=== PATIENT | female | born 2000 | race American Indian/Alaskan Native ===

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

== ENCOUNTER 2021-01-10 22:38 | Emergency (ER) | payer MEDICAID ==
[2021-01-10 22:58] VITALS: BP 123/68
[2021-01-11 00:05] LABS: HCG Qualitative,Urine Negative (Negative)
[2021-01-11 00:22] LABS: Basophils % (Auto) 0.4 % (0.0-1.8); Eosinophils # (Auto) 0.1 K/mm3 (0.0-0.4); Eosinophils % (Auto) 0.7 % (0.0-4.3); Hematocrit 38.1 % (30.3-42.9); Hemoglobin 12.6 gm/dl (10.1-14.3); Lymphocytes # (Auto) 3.4 K/mm3 (1.2-5.4); Lymphocytes % (Auto) 32.5 % (13.4-35.0); Mean Corpuscular HGB Conc 33 % (30-34); Mean Corpuscular Volume 92 fl (79-97); Monocytes # (Auto) 0.8 K/mm3 (0.0-0.8); Monocytes % (Auto) 7.3 % (0.0-7.3); Platelet Count 216 K/mm3 (140-440); Red Blood Count 4.15 M/mm3 (3.65-5.03); Red Cell Distribution Width 12.4 % (13.2-15.2)
[2021-01-11 00:44] LABS: Alanine Aminotransferase 41 units/L (7-56); Albumin 4.6 g/dL (3.9-5); Blood Urea Nitrogen 14 mg/dL (7-17); Calcium 9.7 mg/dL (8.4-10.2); Hemolysis Index 10
[2021-01-11 00:47] LABS: BUN/Creatinine Ratio 20; Bilirubin,Direct < 0.2 mg/dL (0-0.2)
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
== END 2021-01-11 01:39 | disposition left against medical advice (07) ==
LOC: ED 22:38
DX: R10.31 Right lower quadrant pain (principal); R10.32 Left lower quadrant pain; J45.909 Unspecified asthma, uncomplicated; F31.9 Bipolar disorder, unspecified; Z91.010 Allergy to peanuts; Z79.899 Other long term (current) drug therapy
CPT/HCPCS: 36415; 80048; 80076; 81025; 83690; 85025; 99283